=== PATIENT | female | born 1985 | race Caucasian/White ===

== ENCOUNTER → 2020-08-08 14:43 | Outpatient (BNVA) | payer BC, SELFPAY | PROVIDERS: Visit Provider Internal Medicine | DX: R76.8 Other specified abnormal immunological findings in serum (principal); Z11.59 Encounter for screening for other viral diseases; M25.50 Pain in unspecified joint; R21 Rash and other nonspecific skin eruption; F48.8 Other specified nonpsychotic mental disorders; F17.210 Nicotine dependence, cigarettes, uncomplicated | CPT/HCPCS: 99204 ==

== ENCOUNTER 2020-08-08 16:11 | Outpatient (CLI) | payer BC, SELFPAY ==
--- NOTE | 2020-08-08 16:48 | XR_ITS ---
WS: [id number] LEFT HAND: 2 VIEW(S) TECHNIQUE: PA and lateral. HISTORY: R76.8 - Other specified abnormal immunological findings in serum COMPARISON: None available. No acute fracture or dislocation. No erosions or soft tissue edema. XR/XR hand LT 2V [id number] IMPRESSION: Normal LEFT hand.
--- NOTE | 2020-08-08 16:48 | XR_ITS ---
WS: [id number] RIGHT HAND: 2 VIEW(S) TECHNIQUE: PA and lateral. HISTORY: R76.8 - Other specified abnormal immunological findings in serum COMPARISON: None available. No acute fracture or dislocation. Chronic deformity with multiple osseous fragments involving the sec ond terminal tuft from an old injury. No soft tissue or bone abnormality. No erosions or soft tissue edema. XR/XR hand RT 2V [id number] IMPRESSION: No erosions or arthritis.
[2020-08-08 17:24] LABS: Add Urine Microscopic? NO
[2020-08-08 18:11] LABS: C Reactive Protein 10.7 mg/L (0.0-4.9); Creatine Phosphokinase 50 U/L (26-192); Thyroid Stimulating Hormone 1.44 uIU/mL (0.27-4.20)
[2020-08-08 18:44] LABS: Hepatitis B Core AB, Total Non-Reactive (Nonreactive); Hepatitis B Surface Antigen Non-Reactive (Nonreactive); Hepatitis C Virus Antibody Non-Reactive (Nonreactive)
[2020-08-08 18:45] LABS: Bilirubin Urine Neg (Negative); Blood Urine Neg (Negative); Glucose Urine UA Norm (Normal); Ketones Urine Negative (Negative); Leukocyte Esterase Urine Negative (Negative); Nitrate Urine Negative (Negative); Protein Urine Neg (Negative); Urine Appearance Clear (CLEAR); Urine Color Yellow (Yellow); Urobilinogen Urine Norm (Negative); pH Urine 6 (5-7)
[2020-08-09 08:51] LABS: 25 Hydroxy Vitamin D 24 ng/mL (30-100)
[2020-08-10 13:58] LABS: Cyclic Citrullinated Peptide <16 UNITS
[2020-08-10 14:28] LABS: THYROID PEROXIDASE ANTIBODIES <1 IU/mL (<9)
[2020-08-10 16:28] LABS: CENTROMERE B ANTIBODY <1.0 NEG AI (<1.0 NEG); JO-1 ANTIBODY <1.0 NEG AI (<1.0 NEG); RNP ANTIBODY <1.0 NEG AI (<1.0 NEG); SCL-70 ANTIBODY <1.0 NEG AI (<1.0 NEG); SJOGREN'S ANTIBODY (SS-A) <1.0 NEG AI (<1.0 NEG); SM ANTIBODY <1.0 NEG AI (<1.0 NEG); SS-B <1.0 NEG AI (<1.0 NEG)
[2020-08-11 10:04] LABS: COMPLEMENT COMPONENT C3C 182 mg/dL (83-193); COMPLEMENT COMPONENT C4C 25 mg/dL (15-57)
[2020-08-11 13:08] LABS: COMPLEMENT, TOTAL (CH50) >60 U/mL (31-60)
[2020-08-11 15:39] LABS: ANA PATTERN Nuclear, Speckled; ANA SCREEN, IFA POSITIVE (NEGATIVE)
[2020-08-12 15:23] LABS: Tissue Transglutaminase IgA Ab 1 U/mL; Tissue transglutaminase Ab.IgG 2 U/mL
[2020-08-12 17:53] LABS: HLA-B27 NEGATIVE (NEGATIVE)
[2020-08-13 14:53] LABS: DNA AB (DS) CRITHIDIA,IFA NEGATIVE (NEGATIVE)
[2020-08-14 00:54] LABS: Immunoglobulin A 218 mg/dL (47-310)
[2020-08-14 09:19] LABS: Vitamin B1(Thiamin) Plas/Ser 8 nmol/L (8-30)
[2020-08-15 17:34] LABS: Gliadin Ab.IgA 12 U (<20); Gliadin Ab.IgG 4 U (<20)
== END 2020-08-08 16:12 | disposition home or self-care (01) ==
PROVIDERS: PCP Family Medicine; Visit Provider Internal Medicine
DX: R76.8 Other specified abnormal immunological findings in serum (principal); D86.9 Sarcoidosis, unspecified; Z51.81 Encounter for therapeutic drug level monitoring
CPT/HCPCS: 36415; 73120; 81003; 82306; 82550; 82784; 83516; 84425; 84443; 86140; 86704; 86803; 86812; 87340

== ENCOUNTER → 2020-08-31 08:54 | Outpatient (BNVA) | payer BC, SELFPAY | PROVIDERS: PCP Family Medicine; Visit Provider Internal Medicine | DX: M25.50 Pain in unspecified joint (principal); R76.8 Other specified abnormal immunological findings in serum; R21 Rash and other nonspecific skin eruption; F48.8 Other specified nonpsychotic mental disorders; E55.9 Vitamin D deficiency, unspecified; R79.82 Elevated C-reactive protein (CRP); F17.210 Nicotine dependence, cigarettes, uncomplicated | CPT/HCPCS: 99214 ==

== ENCOUNTER → 2020-12-20 15:10 | Outpatient (BNVA) | payer BC, SELFPAY | PROVIDERS: PCP Family Medicine; Visit Provider Internal Medicine | DX: R76.8 Other specified abnormal immunological findings in serum (principal); M25.50 Pain in unspecified joint; F48.8 Other specified nonpsychotic mental disorders; R79.82 Elevated C-reactive protein (CRP); Z79.52 Long term (current) use of systemic steroids; F17.210 Nicotine dependence, cigarettes, uncomplicated | CPT/HCPCS: 99214 ==